=== PATIENT | male | born 2000 | race Caucasian/White ===

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

== ENCOUNTER 2021-03-27 17:55 | Emergency (ER) | payer MEDICAID ==
--- NOTE | 2021-03-27 19:05 | NUR ---
not in lobby
--- NOTE | 2021-03-27 20:48 | NUR ---
NOT IN LOBBY
== END 2021-03-27 20:49 | disposition left against medical advice (07) ==
LOC: ER 17:55
DX: F41.9 Anxiety disorder, unspecified (principal); Z53.21 Procedure and treatment not carried out due to patient leaving prior to being seen by health care provider

== ENCOUNTER 2023-10-21 00:58 | Emergency (ER) | payer MEDICAID ==
[~2023-10-21] VITALS: Ht 190.5 cm; Wt 92.2 kg
[2023-10-21 01:08] VITALS: BP 113/50; PULSE 83; RESP 16; TEMP 98; O2SAT 98
== END 2023-10-21 03:05 | disposition left against medical advice (07) ==
LOC: ER 00:59
DX: F41.9 Anxiety disorder, unspecified (principal); I10 Essential (primary) hypertension; Z53.21 Procedure and treatment not carried out due to patient leaving prior to being seen by health care provider